=== PATIENT | female | born 1955 | race Caucasian/White ===

== ENCOUNTER → 2020-12-24 | Outpatient (CLI) | payer OTHER ==
[2020-12-25 08:14] LABS: RHEUMATOID ARTHRITIS FACTOR <10.0 IU/mL (0.0-13.9)
[2020-12-25 23:07] LABS: CCP ANTIBODIES IGG/IGA 3 units (0-19)
== END ==
LOC: LAB 11:48
PROVIDERS: Nurse Practitioner Family
DX: L93.0 Discoid lupus erythematosus (principal); M25.50 Pain in unspecified joint
CPT/HCPCS: 36415; 81001; 82550; 82570; 83520; 84156; 85652; 86140; 86200; 86431

== ENCOUNTER → 2021-08-17 | Outpatient (CLI) | payer OTHER ==
[2021-08-17 12:23] LABS: HEMOGLOBIN 14.6 gm/dl (12.3-15.3); RED BLOOD COUNT 4.42 M/UL (4.00-5.10)
[2021-08-17 12:52] LABS: BUN/CREATININE RATIO 36 (0-10)
[2021-08-18 07:11] LABS: COMPLEMENT C3, SERUM 129 mg/dL (82-167); COMPLEMENT C4, SERUM 30 mg/dL (12-38)
[2021-08-19 16:14] LABS: DSDNA CRITHIDIA LUCILIAE IFA Negative (Negative)
== END ==
LOC: LAB 11:27
PROVIDERS: Internal Medicine
DX: E78.5 Hyperlipidemia, unspecified (principal); I10 Essential (primary) hypertension; E03.9 Hypothyroidism, unspecified; E55.9 Vitamin D deficiency, unspecified; L93.0 Discoid lupus erythematosus
CPT/HCPCS: 36415; 80053; 80061; 81001; 82570; 84156; 84439; 84443; 85027; 86160; 86162; 86255

== ENCOUNTER → 2021-12-09 | Outpatient (CLI) | payer OTHER | LOC: KOH-I 11:13 | DX: F17.210 Nicotine dependence, cigarettes, uncomplicated (principal); R91.8 Other nonspecific abnormal finding of lung field | CPT/HCPCS: 71271 ==